=== PATIENT | female | born 1950 | race Caucasian/White ===

== ENCOUNTER 2022-01-23 07:50 | Emergency (ER) | payer OTHER ==
[~2022-01-23] VITALS: Ht 165.1 cm; Wt 88.0 kg
[~2022-01-23 07:50] MED LIST: COUMADIN; ROSU20TA2 PO
[2022-01-23 07:54] VITALS: BP_SYST 151
--- NOTE | 2022-01-23 08:06 | NUR ---
Patient to ER bed 3 to gown for evaluation. Side rails up. Report given to
--- NOTE | 2022-01-23 08:15 | NUR ---
Received report from Petra. Assumed care of patient who came from home c/o SOB that started when she woke up around 0600. Patient has a hx of open heart surgery for valve replacement 02/18/2013; AAA Stent ; Pacemaker placed 09/2014. Patient is A&Ox4, calm and cooperative. She is connected to monitor and resting on gurney.
--- NOTE | 2022-01-23 08:17 | NUR ---
ER Dr. Rabago at bedside examining patient.
[2022-01-23 08:39] LABS: BASOPHILS # (AUTO) 0.1 K/uL (0.0-0.2); BASOPHILS % (AUTO) 0.7 % (0.0-2.0); EOSINOPHILS # (AUTO) 0.3 K/uL (0.0-0.4); EOSINOPHILS % (AUTO) 3.5 % (0.0-4.0); HEMOGLOBIN 14.4 g/dL (12.0-16.0); LYMPHOCYTES # (AUTO) 1.6 K/uL (1.0-5.5); LYMPHOCYTES % (AUTO) 21.1 % (20.5-51.5); MEAN CORPUSCULAR HEMOGLOBIN 31 pg (27-31); MEAN CORPUSCULAR HGB CONC 34 % (32-36); MEAN CORPUSCULAR VOLUME 91 fL (79.0-98.0); MONOCYTES # (AUTO) 0.6 K/uL (0.0-1.0); MONOCYTES % (AUTO) 8.4 % (1.7-9.3); NEUTROPHILS % (AUTO) 66.3 % (40.0-70.0); PLATELET COUNT (AUTO) 134 K/uL (130-430); RED CELL DISTRIBUTION WIDTH 13.4 % (9.0-15.0); WHITE BLOOD COUNT (AUTO) 7.5 K/uL (4.8-10.8)
[2022-01-23 08:51] LABS: ANION GAP 10 (5-15); CALCIUM 8.5 mg/dL (8.4-11.0); CHLORIDE 102 mmol/L (98-107); GLUCOSE 122 mg/dL (70-99); POTASSIUM 4.3 mmol/L (3.5-5.1); SODIUM SERUM 139 mmol/L (136-145); UREA NITROGEN, BLOOD 18 mg/dL (8-21)
[2022-01-23 08:58] LABS: ALANINE AMINOTRANSFERASE 29 U/L (12-78); ALBUMIN 3.4 g/dL (3.4-4.8); ASPARTATE AMINOTRANSFERASE 34 U/L (10-37); TOTAL BILIRUBIN 0.9 mg/dL (0.0-1.0)
[2022-01-23] MEDS ORDERED: ALPR0.25 PO (09:48)
--- NOTE | 2022-01-23 10:00 | NUR ---
COVID SWAB DONE AND SENT TO LAB
[2022-01-23 10:12] VITALS: BP_SYST 151
--- NOTE | 2022-01-23 10:12 | NUR ---
Patient given written and verbal discharge instructions and verbalizes understanding. ER MD discussed with patient the results and treatment provided. Patient in stable condition. ID arm band removed. Rx of XANAX given. Patient educated on pain management and to follow up with PMD. Pain Scale 0/10. Opportunity for questions provided and answered. Medication side effect fact sheet provided.
== END 2022-01-23 10:12 | disposition home or self-care (01) ==
LOC: SED 07:50
DX: R06.02 Shortness of breath (principal); I71.4 Abdominal aortic aneurysm, without rupture; Z88.0 Allergy status to penicillin; Z88.5 Allergy status to narcotic agent; Z20.822 Contact with and (suspected) exposure to COVID-19
CPT/HCPCS: 36415; 71045; 80053; 83880; 85025; 99284

== ENCOUNTER 2022-10-16 04:54 | Inpatient (IN) | payer OTHER ==
[~2022-10-16] VITALS: Ht 165.1 cm; Wt 92.1 kg
[~2022-10-16 04:54] MED LIST changes: +ALPR0.25 PO
[2022-10-16 04:55] VITALS: BP_SYST 126
[2022-10-16] MEDS ORDERED: IPRATROPIUM/ALBUTEROL SULFATE 3 ML AMPUL.NEB (DUONEB) INH ONE (05:00)
[2022-10-16] MEDS ORDERED: methylPREDNISolone SOD SUCC/PF 62.5 MG/ML VIAL IVP ONE (05:00)
[2022-10-16] MEDS ORDERED: IPRATROPIUM/ALBUTEROL SULFATE 3 ML AMPUL.NEB (DUONEB) ONE (05:02)
[2022-10-16 05:32] LABS: BASOPHILS # (AUTO) 0.1 K/uL (0.0-0.2); EOSINOPHILS # (AUTO) 0.3 K/uL (0.0-0.4); EOSINOPHILS % (AUTO) 3.7 % (0.0-4.0); HEMATOCRIT 46.2 % (36-48); HEMOGLOBIN 15.2 g/dL (12.0-16.0); LYMPHOCYTES # (AUTO) 4.2 K/uL (1.0-5.5); LYMPHOCYTES % (AUTO) 45.7 % (20.5-51.5); MEAN CORPUSCULAR HEMOGLOBIN 32 pg (27-31); MEAN CORPUSCULAR HGB CONC 33 % (32-36); MEAN CORPUSCULAR VOLUME 96 fL (79.0-98.0); MONOCYTES # (AUTO) 0.7 K/uL (0.0-1.0); MONOCYTES % (AUTO) 7.1 % (1.7-9.3); NEUTROPHILS # (AUTO) 3.9 K/uL (1.8-7.7); NEUTROPHILS % (AUTO) 42.5 % (40.0-70.0); PLATELET COUNT (AUTO) 134 K/uL (130-430); RED BLOOD CELL COUNT(AUTO) 4.82 MIL/uL (4.2-6.2); RED CELL DISTRIBUTION WIDTH 13.9 % (9.0-15.0); WHITE BLOOD COUNT (AUTO) 9.2 K/uL (4.8-10.8)
[2022-10-16 05:50] LABS: ALANINE AMINOTRANSFERASE 45 U/L (12-78); ALBUMIN 3.4 g/dL (3.4-4.8); ANION GAP 13 (5-15); ASPARTATE AMINOTRANSFERASE 49 U/L (10-37); CALCIUM 8.9 mg/dL (8.4-11.0); CHLORIDE 100 mmol/L (98-107); GLUCOSE 168 mg/dL (70-99); TOTAL BILIRUBIN 0.8 mg/dL (0.0-1.0); UREA NITROGEN, BLOOD 15 mg/dL (8-21)
[2022-10-16] MEDS ORDERED: iohexoL 350 mgI/mL, 100 ML INFUS..BTL IV ONE (07:12)
[2022-10-16] MEDS ORDERED: LORazepam 2 MG/ML VIAL IVP PRN (10:15)
[2022-10-16] MEDS ORDERED: NALOXONE HCL 0.4 MG/ML AMP (NARCAN) IVP PRN ×2 (10:15)
[2022-10-16] MEDS ORDERED: HYDROcodone/ACETAMIN 10-325 MG TAB PO PRN (10:15)
[2022-10-16] MEDS ORDERED: ACETAMINOPHEN 325 MG TABLET PO PRN ×2 (10:15)
[2022-10-16] MEDS ORDERED: HYDROcodone/ACETAMIN 5-325 MG TAB (NORCO/ VICODIN) PO PRN (10:15)
[2022-10-16] MEDS ORDERED: ONDANSETRON HCL 4 MG/2 ML VIAL IVP PRN (10:15)
[2022-10-16] MEDS ORDERED: IPRATROPIUM/ALBUTEROL SULFATE 3 ML AMPUL.NEB (DUONEB) INH SCH (11:00)
[2022-10-16] MEDS: IPRATROPIUM BROM 0.5 MG/2.5 ML VIAL.NEB (ATROVENT) INH SCH ×4 (11:28→23:00)
[2022-10-16] MEDS: ALBUTEROL SULFATE 0.083% 2.5 MG/3 ML VIAL.NEB INH SCH ×4 (11:28→23:00)
[2022-10-16 11:35] VITALS: BP_SYST 108
[2022-10-16] MEDS ORDERED: SACUBITRIL/VALSARTAN 24 MG-26 MG 1 TABLET PO ONE (14:30)
[2022-10-16] MEDS ORDERED: FUROSEMIDE 40 MG/4 ML VIAL IVP ONE (14:30)
[2022-10-16 15:08] VITALS: BP_SYST 123
[2022-10-16] MEDS: NORMAL SALINE 5 ML DISP.SYRIN IVF SCH (15:30)
[2022-10-16 20:00] VITALS: BP_SYST 113
[2022-10-16] MEDS: METHYLPREDNISOLONE SOD SUCC 40 MG/ML VIAL IVP SCH (20:57)
[2022-10-16] MEDS: CARVEDILOL 6.25 MG TABLET (COREG) PO SCH (20:58)
[2022-10-16] MEDS: SACUBITRIL/VALSARTAN 24 MG-26 MG 1 TABLET PO SCH (20:59)
[2022-10-16] MEDS ORDERED: METHYLPREDNISOLONE SOD SUCC 40 MG/ML VIAL IVP SCH (21:00)
[2022-10-17] MEDS: ALBUTEROL SULFATE 0.083% 2.5 MG/3 ML VIAL.NEB INH SCH ×3 (04:07→11:27)
[2022-10-17] MEDS: IPRATROPIUM BROM 0.5 MG/2.5 ML VIAL.NEB (ATROVENT) INH SCH ×3 (04:07→11:27)
[2022-10-17 04:14] VITALS: BP_SYST 113
[2022-10-17] MEDS: NORMAL SALINE 5 ML DISP.SYRIN IVF SCH ×2 (05:46→05:47)
[2022-10-17 05:57] LABS: BASOPHILS % (AUTO) 0.2 % (0.0-2.0); HEMATOCRIT 41.5 % (36-48); LYMPHOCYTES # (AUTO) 1.3 K/uL (1.0-5.5); LYMPHOCYTES % (AUTO) 9.6 % (20.5-51.5); MEAN CORPUSCULAR HEMOGLOBIN 32 pg (27-31); MEAN CORPUSCULAR HGB CONC 34 % (32-36); MEAN CORPUSCULAR VOLUME 95 fL (79.0-98.0); MONOCYTES # (AUTO) 0.3 K/uL (0.0-1.0); MONOCYTES % (AUTO) 2.6 % (1.7-9.3); NEUTROPHILS % (AUTO) 87.6 % (40.0-70.0); PLATELET COUNT (AUTO) 136 K/uL (130-430); RED BLOOD CELL COUNT(AUTO) 4.39 MIL/uL (4.2-6.2); RED CELL DISTRIBUTION WIDTH 14.1 % (9.0-15.0); WHITE BLOOD COUNT (AUTO) 13.7 K/uL (4.8-10.8)
[2022-10-17 06:16] LABS: ANION GAP 9 (5-15); CALCIUM 9.2 mg/dL (8.4-11.0); CHLORIDE 102 mmol/L (98-107); CREATININE 1.29 mg/dL (0.55-1.30); GLUCOSE 179 mg/dL (70-99); UREA NITROGEN, BLOOD 26 mg/dL (8-21)
[2022-10-17 08:00] VITALS: BP_SYST 92
[2022-10-17] MEDS: SACUBITRIL/VALSARTAN 24 MG-26 MG 1 TABLET PO SCH (08:50)
[2022-10-17] MEDS: CARVEDILOL 6.25 MG TABLET (COREG) PO SCH (08:55)
[2022-10-17] MEDS: METHYLPREDNISOLONE SOD SUCC 40 MG/ML VIAL IVP SCH (09:13)
[2022-10-17] MEDS ORDERED: SACU1TAB PO (10:22)
[2022-10-17] MEDS ORDERED: PRED20TA PO (10:22)
[2022-10-17] MEDS ORDERED: COR6.25 PO (10:22)
[2022-10-17] MEDS ORDERED: AZIT500T10 PO (10:22)
[2022-10-17 11:08] VITALS: BP_SYST 92
[2022-10-17 12:06] VITALS: BP_SYST 100
== END 2022-10-17 13:30 | disposition home or self-care (01) | DRG 291 ==
LOC: SED 04:54 → STU 09:21
PROVIDERS: ADMIT Preventive Medicine Preventive Medicine/Occupational Environmental Medicine; ATTEND Preventive Medicine Preventive Medicine/Occupational Environmental Medicine
DX: I11.0 Hypertensive heart disease with heart failure (principal); I50.23 Acute on chronic systolic (congestive) heart failure; J96.01 Acute respiratory failure with hypoxia; J44.1 Chronic obstructive pulmonary disease with (acute) exacerbation; I24.8 Other forms of acute ischemic heart disease; C44.92 Squamous cell carcinoma of skin, unspecified; E78.5 Hyperlipidemia, unspecified; F17.290 Nicotine dependence, other tobacco product, uncomplicated; I25.10 Atherosclerotic heart disease of native coronary artery without angina pectoris; R73.03 Prediabetes; Z20.822 Contact with and (suspected) exposure to COVID-19; R73.9 Hyperglycemia, unspecified; Z85.828 Personal history of other malignant neoplasm of skin; Z86.79 Personal history of other diseases of the circulatory system; Z95.0 Presence of cardiac pacemaker
CPT/HCPCS: 36415; 71045; 76705; 78579; 78580-TC; 80048; 80053; 83880; 84484; 85025; 85379; 93005; 93306; 94640; 94760; 96374; 96375; 99285; A9539; A9540; G0378; J1030; J1940; J2930; J7613; Q9967

== ENCOUNTER 2023-02-03 04:34 | Emergency (ER) | payer OTHER ==
[~2023-02-03 04:34] MED LIST changes: -ALPR0.25 PO; +AZIT500T10 PO; +COR6.25 PO; -COUMADIN; +PRED20TA PO; -ROSU20TA2 PO; +SACU1TAB PO
--- NOTE | 2023-02-03 04:35 | NUR ---
Patient to ER bed 06 to gown for evaluation. Side rails up. Report given to ESTER CHUNG.
[2023-02-03 04:41] VITALS: BP_SYST 134
--- NOTE | 2023-02-03 04:43 | NUR ---
Patient brought in for SOB, breathing treatment in progress upon arrival, vitals signs stable, endorse that patient was saturating 89% on room air, 18g in left ac noted
[2023-02-03] MEDS ORDERED: ASPIRIN 81 MG TAB.CHEW PO ONE (04:45)
--- NOTE | 2023-02-03 04:50 | NUR ---
MACHINE BOSS AT BEDSIDE.
--- NOTE | 2023-02-03 04:53 | NUR ---
Dr. NIEVES at bedside examining the patient.
--- NOTE | 2023-02-03 04:59 | NUR ---
PORTABLE X-RAY DONE AT BEDSIDE.
[2023-02-03] MEDS ORDERED: FUROSEMIDE 20 MG/2 ML VIAL IVP ONE (05:00)
--- NOTE | 2023-02-03 05:05 | NUR ---
PATIENT REFUSED ASPIRIN AT THIS TIME
[2023-02-03 05:06] LABS: BASOPHILS # (AUTO) 0.1 K/uL (0.0-0.2); EOSINOPHILS # (AUTO) 0.1 K/uL (0.0-0.4); EOSINOPHILS % (AUTO) 0.7 % (0.0-4.0); HEMOGLOBIN 12.4 g/dL (12.0-16.0); LYMPHOCYTES # (AUTO) 2.3 K/uL (1.0-5.5); LYMPHOCYTES % (AUTO) 22.4 % (20.5-51.5); MEAN CORPUSCULAR HEMOGLOBIN 31 pg (27-31); MEAN CORPUSCULAR HGB CONC 33 % (32-36); MEAN CORPUSCULAR VOLUME 96 fL (79.0-98.0); MONOCYTES # (AUTO) 0.7 K/uL (0.0-1.0); MONOCYTES % (AUTO) 6.5 % (1.7-9.3); NEUTROPHILS # (AUTO) 7.2 K/uL (1.8-7.7); NEUTROPHILS % (AUTO) 69.4 % (40.0-70.0); PLATELET COUNT (AUTO) 171 K/uL (130-430); RED BLOOD CELL COUNT(AUTO) 3.94 MIL/uL (4.2-6.2); RED CELL DISTRIBUTION WIDTH 15.7 % (9.0-15.0); WHITE BLOOD COUNT (AUTO) 10.4 K/uL (4.8-10.8)
[2023-02-03 05:52] LABS: ANION GAP 8 (5-15); CALCIUM 9.1 mg/dL (8.4-11.0); CHLORIDE 104 mmol/L (98-107); CREATININE 1.24 mg/dL (0.55-1.30); GLUCOSE 116 mg/dL (70-99); UREA NITROGEN, BLOOD 13 mg/dL (8-21)
[2023-02-03 06:11] LABS: ALANINE AMINOTRANSFERASE 49 U/L (12-78); ASPARTATE AMINOTRANSFERASE 45 U/L (10-37)
--- NOTE | 2023-02-03 06:18 | NUR ---
Dr. Dann Rabago at bedside examining the patient.
--- NOTE | 2023-02-03 07:09 | NUR ---
REPOPRT GIVEN AND CARE TRANSFERRED TO [facility] FOR CONTINUITY OF CARE.
--- NOTE | 2023-02-03 07:30 | NUR ---
CRITICAL LAB VALUE: Troponin 185 reported by nena Wills Notified MD Rabago.
--- NOTE | 2023-02-03 08:10 | NUR ---
ACCEPTED CARE OF PATIENT. AAOX4 CC OF SOB & CHEST PAIN. PATIENT DENIES CHEST PAIN AT THIS TIME. VISIBLE SOB UPON EXERTION. MED HX HTN, CHF, DM, SKIN CANCER. SX HX AORTIC VALVE REPLACEMENT 2012, PACEMAKER PLACEMENT 2012, RIGHT KNEE REPLACEMENT 2021. ALLERGY TO PCN. VSS ON 3 LPM VIA NC.
--- NOTE | 2023-02-03 08:15 | NUR ---
RECEIVED CRITICAL LAB VALUE OF TROPONIN 176. DR ALBA MADE AWARE. NO CHANGE IN ORDERES.
--- NOTE | 2023-02-03 10:35 | NUR ---
GAVE REPORT TO [facility]. PATIENT IS GOING TO ROOM 219A. REPAIRER SWITCHGEAR SCHEDULED FOR 1130 WITH [facility]. PATIENT MADE AWARE.
--- NOTE | 2023-02-03 12:50 | NUR ---
PATIENT REQUESTED TO USE RESTROOM. PLACED BACK ONTO MONITORING EQUIPMENT ONCE RETURNED. INCRESED SOB NOTED AFTER RETURNING. PLACED IMMEDIATELY ONTO OXYGEN. O2 SAT 96% ON O2 AT 3 LPM VIA NC.
[2023-02-03 13:35] VITALS: BP_SYST 131
--- NOTE | 2023-02-03 13:35 | NUR ---
Patient is being transferred to [facility]. Is being transferred due to higher level of care. Receiving facility has accepting physician and available space. ER physician has signed transfer form. Patient or responsible libertarian has agreed to transfer and signed form. Patient belongings inventoried and will be sent with patient. Copy of nursing notes, lab reports, EKG, Physicians Orders and X-rays to be sent with patient. Report called to receiving facility. Receiving physician is Ab Rabago. [facility] transporting. Patien is in stable condition.
== END 2023-02-03 13:35 | disposition short-term general hospital (02) ==
LOC: SED 04:34
DX: I11.0 Hypertensive heart disease with heart failure (principal); I50.9 Heart failure, unspecified; R06.02 Shortness of breath; Z88.0 Allergy status to penicillin; Z88.2 Allergy status to sulfonamides; Z85.828 Personal history of other malignant neoplasm of skin; Z79.899 Other long term (current) drug therapy; Z20.822 Contact with and (suspected) exposure to COVID-19
CPT/HCPCS: 99285; 96374; 71045; 87426; 80053; 83880; 85025; 87040; 84484; 36415; 93005; J1940